=== PATIENT | male | born 1995 | race Caucasian/White ===

== ENCOUNTER 2018-06-10 18:43 | Emergency (ER) ==
[2018-06-10] MEDS ORDERED: Lidocaine 1% PF 5 ML VIAL ONE (19:19)
[2018-06-10] MEDS ORDERED: Acetaminophen 325 MG TAB ONE (19:49)
[2018-06-10] MEDS ORDERED: Adacel (T-DAP) 0.5 ML VIAL ONE (19:49)
[2018-06-10] MEDS ORDERED: Bacitracin Zinc 1 Packet ONE (20:17)
== END 2018-06-10 20:24 | disposition home or self-care (01) ==
LOC: SCSER 18:43
DX: S01.81XA Laceration without foreign body of other part of head, initial encounter (principal); Z21 Asymptomatic human immunodeficiency virus [HIV] infection status; W22.8XXA Striking against or struck by other objects, initial encounter
CPT/HCPCS: 12011; 90471; 90715; J2001

== ENCOUNTER 2018-06-15 10:37 | Emergency (ER) | payer SELFPAY | END 2018-06-15 13:13 | disposition left against medical advice (07) | LOC: SCSER 10:37 | DX: Z53.21 Procedure and treatment not carried out due to patient leaving prior to being seen by health care provider (principal) ==